=== PATIENT | female | born 2000 | race Caucasian/White ===

== ENCOUNTER 2022-03-14 20:46 | Observation (INO) | payer OTHER ==
[~2022-03-14] VITALS: Ht 162.6 cm; Wt 93.9 kg
[2022-03-14] MEDS ORDERED: PNV1TABL61 MT (23:15)
[2022-03-18] MEDS ORDERED: IBUP-2028 PO (03:00)
== END 2022-03-14 23:30 | disposition home or self-care (01) ==
LOC: 8EST NSY 20:46 → 8 EST LDRP 21:17
PROVIDERS: ADMIT Obstetrics & Gynecology; ATTEND Obstetrics & Gynecology
DX: O62.9 Abnormality of forces of labor, unspecified (principal); Z3A.40 40 weeks gestation of pregnancy
CPT/HCPCS: 59025; 76815; 76818; G0378; 99281